=== PATIENT | female | born 1960 | race Caucasian/White ===

== ENCOUNTER 2025-01-24 06:05 | Day surgery (SDC) | payer BC, SELFPAY ==
[2025-01-24 06:25] VITALS: BMI 32.4
[2025-01-24 06:34] VITALS: BP 134/64; PULSE 80; RESP 20; TEMP 36.2; O2SAT 97
[2025-01-24] MEDS: LACTATED RINGERS 1000 ML 1,000 ML 100 ML IV (06:45)
[2025-01-24] MEDS: SODIUM CHLORIDE 0.9 % (FLUSH) 10 ML SYRINGE IVF (06:48)
--- NOTE | 2025-01-24 07:16 | W.PM.H&PU ---
History & Physical Update History & Physical Update H&P Reviewed and patient assessed: No changes noted H&P Updates: We discussed in same-day surgery excision of right forearm and left lateral thigh masses and those were added to the procedure.
--- NOTE | 2025-01-24 07:17 | P.GSOP_ITS ---
Operative Note Date of procedure: 01/24/25 Pre-op diagnosis: 1. Umbilical hernia. 2. Symptomatic right forearm masses x2 and left lateral thigh mass. Post-op diagnosis: Same Type of Procedure: 1. Open umbilical hernia repair with mesh. 2. Excision of right forearm masses x2. 3. Excision of left lateral thigh mass. Indications: 64-year-old female was seen in clinic for evaluation of masses in the right forearm, right back, and left lateral thigh. The masses have been present for over a year and are usually tender when somebody pushes on them. She also noticed an umbilical bulge for the last couple years. It has not been increasing in size but patient is concerned about having it present and like to have it repaired. On clinical exam in the right forearm there were 2 masses adjacent to each other with the largest being 2 cm in diameter. This was soft and mobile to palpation and was thought to be lipomas. In the left inferior lateral thigh there is a firm marble sized subcutaneous mass that was also mobile and adjacent to a superficial vein. This was also thought to be lipoma. In the abdomen there was a grape sized umbilical bulge at the superior aspect of the umbilicus that was reducible. The fascial defect was approximately 8 mm. In the right lower back there was the obliquely oriented soft tissue mass that was measuring 3 x 1.5 cm. The mass was more difficult to define and was deeper than the rest of the masses. Given patient's clinical history and her concerns of umbilical hernia, an open umbilical hernia repair was recommended. The procedure was discussed in detail. The risks associated procedure including infection, bleeding, injury to intra-abdominal organs, and hernia recurrence were all discussed with the patient, she agreed to proceed. Since patient will already be under anesthesia in supine position, we also elected to proceed with excision of right forearm masses and left lateral thigh masses. The risks with those procedures were discussed with the patient as well, and she agreed to proceed. Procedure Description: After discussing the risks and benefits of the procedure, the patient signed informed consent.? The operative site was marked and the patient was brought to the operating room and placed on the operating table in supine position.? Care was taken to pad the patient's pressure points.?? The patient was then sedated by anesthesia.?? The operative site was then prepped and draped in the usual sterile fashion.? A time-out was then performed. Local anesthetic was injected at the surgical site. A curvilinear skin incision was made with a scalpel just above the umbilicus. Subcutaneous tissue was dissected with electrocautery down to the hernia sac and anterior fascia. The hernia sac was dissected off of the anterior fascia and subcutaneous fat around the fascial defect was dissected away from the fascial defect with cautery. Preperitoneal fat was incarcerated through the fascial defect. This was dissected off the fascia and reduced into the preperitoneal space. I then developed preperitoneal space for mesh insertion. The fascial defect was approximately 11 mm. A small Ventralex ST mesh patch was then inserted into preperitoneal space and secured to the fascia using 0-[address] itches. I examined my closure and no defects were identified between the fascia and the mesh. Fascia was re-approximated over the mesh with a running 2-0 Vicryl stitch. Additional local anesthetic was injected into subcutaneous tissues. An umbilicus was tacked down with interrupted 3-0 Vicryl stitches. Subdermal layer was closed with interrupted sutures using 3-0 Vicryl. Skin was closed with 4-0 M onocryl using subcuticular stitch. Steri strips were applied over the incision. I then placed a folded sterile 2 x 2 and 4x4 gauze over the incision and covered it with tape. I then proceeded with excision of right forearm masses. This area was prepped and draped in the usual sterile fashion. Local anesthetic was injected at the surgical site. A vertical surgical incision was made with a scalpel over the largest mass. The mass was then delivered with pressure applied to the surrounding tissues. The mass had an appearance of lipoma and was measuring 1.5 x 1 cm. I attempted to remove the second mass through the same incision but it was difficult to identified and isolated from subcutaneous fat. I then made a 5 mm vertical incision over the palpable small mass and was able to deliver the mass out of the incision easily. This mass also had an appearance of lipoma and was measuring approximately 7 x 5 mm. Both masses were sent to pathology in the same jar. The right forearm incisions were then closed in layers reapproximating the dermis with 3-0 Vicryl sutures and closing the skin with a running 4-0 Monocryl stitch. Steri-Strips were placed over the incisions. The right forearm was then wrapped in an Ranjeet wrap. I then proceeded with removing the left lateral thigh mass. Surgical field was then prepped and draped in the usual sterile fashion. Local anesthetic was injected at the surgical site. A vertical skin incision was made with a scalpel. With pressure applied to the surrounding tissues, the mass was easily delivered from the incision. The mass had an appearance of lipoma and was measuring 2 x 1 cm. This was sent to pathology in a separate jar. Hemostasis achieved with cautery. Dermis was then reapproximated with interrupted 3-0 Vicryl sutures. The skin was then closed with a running 4-0 Monocryl stitch. Steri-Strips were applied over the incision. All counts were correct at the end of the case. Patient tolerated the procedure well and was transferred to PACU without any complications. Findings: Umbilical hernia was repaired with small mesh patch. The removed masses had appearance of lipomas. Anesthesia: MAC and local Surgeon: Tatyana Edward MD Additional Specimen Information: 1. Right forearm masses x2. 2. Left lateral thigh mass. Disposition: same day
[2025-01-24] MEDS: BUPIVACAINE 0.25% 30 ML INJECTION (08:06)
[2025-01-24] MEDS: LIDOCAINE 1%-EPI 1:100,000 20 ML INFILTRATI (08:06)
[2025-01-24 08:44] VITALS: BP 96/57; PULSE 78; RESP 16; TEMP 36.2; O2SAT 96
--- NOTE | 2025-01-24 08:45 | P.ANES_ITS ---
Anesthesia Charges Start Date/Time Anesthesia Start Date: 01/24/25 Anesthesia Start Time: 07:21 Stop Date/Time Anesthesia Stop Date: 01/24/25 Anesthesia Stop Time: 08:43 Coding CPT Codes CPT Codes: ANESTH REPAIR OF HERNIA - 89674 ([id number]) P2 - PATIENT W/MILD SYST DISEASE, QK - AIRCONDITIONING ENGINEER 2-4 CNCRNT ANES PROC, QX - CIVIL ENGINEERING TECHNICIAN SVC W/ MD MED DIRECTION
--- NOTE | 2025-01-24 08:45 | W.ANESCHARGE ---
Anesthesia Charges Start Date/Time Anesthesia Start Date: 01/24/25 Anesthesia Start Time: 07:21 Stop Date/Time Anesthesia Stop Date: 01/24/25 Anesthesia Stop Time: 08:43 Coding CPT Codes CPT Codes: ANESTH REPAIR OF HERNIA - 77952 ([id number]) P2 - PATIENT W/MILD SYST DISEASE, QK - HOUSEKEEPING/LAUNDRY 2-4 CNCRNT ANES PROC, QX - USED CAR MAKE READY MECHANIC SVC W/ MD MED DIRECTION
--- NOTE | 2025-01-24 08:48 | P.ANES_ITS ---
Anesthesia Charges Start Date/Time Anesthesia Start Date: 01/24/25 Anesthesia Start Time: 07:21 Stop Date/Time Anesthesia Stop Date: 01/24/25 Anesthesia Stop Time: 08:43 Coding CPT Codes CPT Codes: ANESTH REPAIR OF HERNIA - 30708 ([id number]) P2 - PATIENT W/MILD SYST DISEASE, QZ - COMPUTER SUPPORT SPECIALIST SVC W/O HOSE SUSPENDER CUTTER BY
--- NOTE | 2025-01-24 08:48 | W.ANESCHARGE ---
Anesthesia Charges Start Date/Time Anesthesia Start Date: 01/24/25 Anesthesia Start Time: 07:21 Stop Date/Time Anesthesia Stop Date: 01/24/25 Anesthesia Stop Time: 08:43 Coding CPT Codes CPT Codes: ANESTH REPAIR OF HERNIA - 35825 ([id number]) P2 - PATIENT W/MILD SYST DISEASE, QZ - INSIDE SALES EXECUTIVE SVC W/O KEY PUNCH TEACHER BY
[2025-01-24 09:00] VITALS: BP 111/63; PULSE 80; RESP 16; O2SAT 97
[2025-01-24 09:15] VITALS: BP 121/63; PULSE 69; RESP 16; O2SAT 97
[2025-01-24 09:30] VITALS: BP 122/61; PULSE 68; RESP 16; O2SAT 95
[2025-01-24 09:45] VITALS: BP 126/68; PULSE 70; RESP 16; O2SAT 95
[2025-01-24] MEDS: HYDROCODONE-ACETAMIN 5-325 MG 1 TAB PO (10:04)
--- NOTE | 2025-01-24 10:06 | SUR.PHASEII ---
Left leg incision site oozing, Dr. Edward advised to change steri strips, apply gauze and wrap the area.
== END 2025-01-24 10:07 | disposition home or self-care (01) ==
PROVIDERS: PCP Physician Assistant Medical; Visit Provider Surgery
PROC: (CPT 49591; principal; 2025-01-24 07:30)
DX: K42.9 Umbilical hernia without obstruction or gangrene (principal); D17.21 Benign lipomatous neoplasm of skin and subcutaneous tissue of right arm; D17.24 Benign lipomatous neoplasm of skin and subcutaneous tissue of left leg; E11.9 Type 2 diabetes mellitus without complications; I10 Essential (primary) hypertension
CPT/HCPCS: 49591; 25075 ×2; 27337; 00830; 82962; 88304; A9270; C1781; J0665; J0690; J1100; J2250; J2405; J2704; J3010; J3490; J7120